=== PATIENT | male | born 1990 | race Caucasian/White ===

== ENCOUNTER 2019-08-12 00:04 | Emergency (ER) | payer OTHER ==
[~2019-08-12] VITALS: Ht 190.5 cm; Wt 103.4 kg
[2019-08-12 00:12] VITALS: Ht 190.5 cm; Wt 103.4 kg
[2019-08-12 01:17] LABS: BASOPHIL % 0.5 % (0-2); PLATELET COUNT 238 x10^3mcL (130-400); RED CELL DISTRIBUTION WIDTH 13.1 % (11.5-14.5)
[2019-08-12 01:30] LABS: CARBON DIOXIDE 32.4 mmol/L (21-32); CHLORIDE SERUM 102 mmol/L (98-107); CREATININE SERUM 0.8 mg/dL (0.7-1.3); GFR1 > 60 mL/min; GLUCOSE SERUM 110 mg/dL (74-106); POTASSIUM SERUM 4.7 mmol/L (3.5-5.1); SODIUM SERUM 139 mmol/L (136-145)
[2019-08-12 01:34] LABS: ALKALINE PHOSPHATASE 106 U/L (46-116); ALT/SGPT 316 U/L (16-63); AST/SGOT 110 U/L (15-37); BILIRUBIN TOTAL 0.82 mg/dL (0.20-1.00); TOTAL PROTEIN, SERUM 7.7 g/dL (6.4-8.2)
[2019-08-12 01:54] LABS: ALBUMIN 3.3 g/dL (3.4-5.0)
[2019-08-12 02:39] VITALS: BP 112/58
== END 2019-08-12 02:39 | disposition home or self-care (01) ==
LOC: ED 00:04
PROVIDERS: Emergency Medicine
DX: L50.9 Urticaria, unspecified (principal); F11.90 Opioid use, unspecified, uncomplicated
CPT/HCPCS: 36415; J1885; J7512

== ENCOUNTER 2021-01-08 18:27 | Emergency (ER) | payer OTHER ==
[~2021-01-08] VITALS: Ht 195.6 cm; Wt 113.4 kg
[2021-01-08 18:37] VITALS: Ht 195.6 cm; Wt 113.4 kg
[2021-01-08] MEDS ORDERED: ZOF4 PO (19:22)
[2021-01-08 19:36] VITALS: BP 139/70
== END 2021-01-08 19:36 ==
LOC: ED 18:27
DX: Z02.89 Encounter for other administrative examinations (principal)